=== PATIENT | female | born 1985 | race Caucasian/White ===

== ENCOUNTER 2017-09-07 16:45 | Emergency (ER) | payer OTHER ==
[~2017-09-07] VITALS: Ht 177.8 cm; Wt 94.3 kg
[2017-09-07 18:57] VITALS: BP 128/71
== END 2017-09-07 18:57 | disposition home or self-care (01) ==
LOC: ED 16:45
DX: S16.1XXA Strain of muscle, fascia and tendon at neck level, initial encounter (principal); M54.9 Dorsalgia, unspecified; R03.0 Elevated blood-pressure reading, without diagnosis of hypertension; V89.2XXA Person injured in unspecified motor-vehicle accident, traffic, initial encounter; Y93.89 Activity, other specified; Y99.8 Other external cause status; Y92.89 Other specified places as the place of occurrence of the external cause
CPT/HCPCS: J1885

== ENCOUNTER 2018-03-22 09:37 | Emergency (ER) | payer OTHER ==
[~2018-03-22] VITALS: Ht 177.8 cm; Wt 101.6 kg
[2018-03-22 09:49] VITALS: Ht 177.8 cm; Wt 101.6 kg
[2018-03-22 12:02] VITALS: BP 105/66
== END 2018-03-22 12:02 | disposition home or self-care (01) ==
LOC: ED 09:37
DX: M54.5 Low back pain (principal)
CPT/HCPCS: J1200; J2270

== ENCOUNTER 2018-12-25 19:40 | Emergency (ER) | payer OTHER ==
[~2018-12-25] VITALS: Ht 175.3 cm; Wt 95.3 kg
[2018-12-25 19:48] VITALS: Ht 175.3 cm; Wt 95.3 kg
[2018-12-26 00:23] LABS: UA SPECIFIC GRAVITY <=1.005 (1.005-1.035); microscopic required? YES; urine erythrocyte TRACE (NEGATIVE)
[2018-12-26 04:07] VITALS: BP 96/54
== END 2018-12-26 04:07 | disposition home or self-care (01) ==
LOC: ED 19:40
PROVIDERS: Emergency Medicine
DX: M51.86 Other intervertebral disc disorders, lumbar region (principal); G43.909 Migraine, unspecified, not intractable, without status migrainosus; Z98.890 Other specified postprocedural states
CPT/HCPCS: J1885; J2270; J3490